=== PATIENT | male | born 1970 | race Caucasian/White ===

== ENCOUNTER → 2024-05-05 12:20 | Outpatient (REF) | payer OTHER, SELFPAY | LOC: RAD 12:20 | PROVIDERS: ATTENDING PHYSICIAN Family Medicine | DX: M79.671 Pain in right foot (principal) | CPT/HCPCS: 73630 ==

== ENCOUNTER → 2024-07-10 17:38 | Outpatient (REF) | payer OTHER, SELFPAY | LOC: RAD 17:38 | PROVIDERS: ATTENDING PHYSICIAN Family Medicine | DX: R79.89 Other specified abnormal findings of blood chemistry (principal) | CPT/HCPCS: 76700 ==